=== PATIENT | male | born 1955 | race Caucasian/White ===

== ENCOUNTER → 2018-03-22 | Outpatient (CLI) | payer OTHER ==
--- NOTE | ~2018-03-22 | EXE ---
[facility] [employer] [address] STRESS ECHOCARDIOGRAM Name: RODOLFO MELVIN Room #: [facility]#: [id number] Admission: 03/22/18 Attend Phys: Jet Campbell, Discharge: Date of : 51 Date of Service: 03/22/18 1044 Report #: [id number] THIS REPORT FOR: //name// APPROVED REPORT Study performed: 03/22/2018 09:03:16 Exam: Stress Echocardiogram Indication: CAD Patient Location: Echo lab Stress Nurse: Leanne Rose RN Status: routine Ht: 5 ft 10 in HR: 61 bpm BP: 152/92 mmHg Medical History Medical History: Hyperlipidemia, HTN Cardiac Risk Factors: HTN Procedure The patient underwent an Exercise Stress Test using the Zana Protocol. Blood pressure, heart rate, and EKG were monitored. An Echocardiogram was performed by administrative support technician in four stages in quad fashion. At peak stress, four selected images were obtained and placed side by side with resting images for comparison. Stress Test Details Stress Test: Exercise stress testing was performed using a Zana protocol. HR Resting HR: 61 bpm Max Heart Rate (APMHR): 155 bpm Max HR Achieved: 120 bpm Target HR (85% APMHR): 131 bpm % of APMHR: 77 Recovery HR: 71 bpm HR response to stress: Normal HR response to stress BP Resting BP: 152/92 mmHg Max BP: 155/90 mmHg Recovery BP: 140/82 mmHg ECG Clinical [facility] [address] [place] [address] STRESS ECHOCARDIOGRAM Name: RODOLFO MELVIN Room #: [facility]#: [id number] Admission: 03/22/18 Attend Phys: Jet Campbell, Discharge: Date of : 51 Date of Service: 03/22/18 1044 Report #: [id number] Reason for Termination: Leg pain/Claudication Stress Symptoms: Leg Fatigue Exercise duration: 10 min 17 sec Highest Stage Achieved: Stage 4: 4.2 mph at 16% grade. Exercise capacity: 13.70 METs Pre-Stress Echo The resting Echocardiogram showed normal left ventricular contractility with an estimated Ejection Fraction of about 55-60%. Post-Stress Echo The stress Echocardiogram showed normal left ventricular contractility with an estimated Ejection Fraction of about 65-70%. Conclusion Clinical Response: Non-ischemic Exercise Capacity: Average Stress ECG Response: Non-ischemic Stress Echo Images: Non-ischemic sensitivity slightly diminshed sec to submax heart rate Other Information Study Quality: Adequate <Conclusion> sensitivity slightly diminshed sec to submax heart rate <ELECTRONICALLY SIGNED> By: Jet Campbell MD, [facility] 03/22/18 1044 1044 1044 Jet Campbell MD, FACC /INF
== END ==
LOC: CV 03-20 12:40
DX: I25.810 Atherosclerosis of coronary artery bypass graft(s) without angina pectoris (principal); I10 Essential (primary) hypertension; E78.5 Hyperlipidemia, unspecified

== ENCOUNTER → 2019-11-14 | Outpatient (CLI) | payer OTHER | LOC: SJCVC 14:47 | DX: R94.31 Abnormal electrocardiogram [ECG] [EKG] (principal); I25.810 Atherosclerosis of coronary artery bypass graft(s) without angina pectoris; E78.00 Pure hypercholesterolemia, unspecified; E11.9 Type 2 diabetes mellitus without complications; I10 Essential (primary) hypertension; Z79.82 Long term (current) use of aspirin; Z79.899 Other long term (current) drug therapy; Z95.1 Presence of aortocoronary bypass graft; Z78.9 Other specified health status ==

== ENCOUNTER → 2020-01-19 | Outpatient (CLI) | payer OTHER | LOC: SJCVCIMAG 07:47 | DX: I25.10 Atherosclerotic heart disease of native coronary artery without angina pectoris (principal); E78.00 Pure hypercholesterolemia, unspecified; I10 Essential (primary) hypertension; Z95.1 Presence of aortocoronary bypass graft ==

== ENCOUNTER → 2020-09-13 | Outpatient (CLI) | payer OTHER | LOC: SJCVCIMAG 09:12 | PROVIDERS: ATTEND Internal Medicine Cardiovascular Disease | DX: I07.1 Rheumatic tricuspid insufficiency (principal); R94.31 Abnormal electrocardiogram [ECG] [EKG]; I25.10 Atherosclerotic heart disease of native coronary artery without angina pectoris; I11.9 Hypertensive heart disease without heart failure; E78.00 Pure hypercholesterolemia, unspecified; E11.9 Type 2 diabetes mellitus without complications; Z95.1 Presence of aortocoronary bypass graft; Z78.9 Other specified health status; Z79.82 Long term (current) use of aspirin; Z79.899 Other long term (current) drug therapy ==

== ENCOUNTER → 2021-06-13 | Outpatient (CLI) | payer OTHER | LOC: SJCVCIMAG 12:38 | PROVIDERS: ATTEND Internal Medicine Cardiovascular Disease | DX: I07.1 Rheumatic tricuspid insufficiency (principal); I25.10 Atherosclerotic heart disease of native coronary artery without angina pectoris; E78.00 Pure hypercholesterolemia, unspecified; I10 Essential (primary) hypertension; E78.1 Pure hyperglyceridemia; Z95.1 Presence of aortocoronary bypass graft; Z72.89 Other problems related to lifestyle; Z79.82 Long term (current) use of aspirin; Z79.84 Long term (current) use of oral hypoglycemic drugs; Z79.899 Other long term (current) drug therapy; Z88.8 Allergy status to other drugs, medicaments and biological substances ==